=== PATIENT | female | born 1985 ===

== ENCOUNTER 2021-07-15 10:46 | Day surgery (SDC) | payer OTHER ==
[~2021-07-15 10:46] MED LIST: D3 + K2 DOTS 11 EACH PO; METFORMIN HCL500 M3 PO
== END 2021-07-15 21:25 | disposition home or self-care (01) ==
LOC: CIR.AMB 10:46
PROVIDERS: ATTEND Obstetrics & Gynecology
DX: N84.0 Polyp of corpus uteri (principal); Z88.8 Allergy status to other drugs, medicaments and biological substances; G47.33 Obstructive sleep apnea (adult) (pediatric); K21.9 Gastro-esophageal reflux disease without esophagitis